=== PATIENT | male | born 1990 | race Caucasian/White ===

== ENCOUNTER 2016-10-25 02:17 | Emergency (ER) | payer OTHER ==
[~2016-10-25 02:17] MED LIST: ACETAMINOPHEN500 M2 PO; ADVIL200 M1 PO; ANTIVERT25 MG PO; ATIVAN1 MG PO; FLEXERIL10 MG; H PO; HYDROCODONE; IBUPROFEN800 MG PO; KEFLEX500 MG PO; LOPRESSOR50 MG PO; METOPROL; METOPROLOL TART25 MG PO; MS CONTIN30 M1 PO; NORCO 5/325 TAB1 TAB; NORCO 5/325 TAB1 TAB PO; PRILOSEC OTC20 MG PO; RYTHMOL150 MG; TOPROL XL50 MG PO; VICODIN 5/500 T1 TAB PO; VITAMIN C PO; XANAX0.5 M1 PO; ZESTRIL5 MG PO; [UNRECOGNIZED DRUG - OTHER] PO; prilosec PO
[2016-10-25] MEDS ORDERED: AUGMENTIN 875-1 EAC2 PO (04:37)
[2017-01-23] MEDS ORDERED: TOPROL XL25 M1 PO (17:04)
[2017-01-23] MEDS ORDERED: OMEPRAZOLE40 M2 PO (17:04)
[2017-01-23] MEDS ORDERED: MS CONTIN30 M1 PO (17:05)
== END 2016-10-25 04:45 ==
LOC: EDMED 02:17
DX: R51 Headache (principal); H66.92 Otitis media, unspecified, left ear; F17.210 Nicotine dependence, cigarettes, uncomplicated; I48.91 Unspecified atrial fibrillation; Z98.890 Other specified postprocedural states
CPT/HCPCS: J1200; J1885; J2405; J2765; J7030

== ENCOUNTER 2017-01-25 10:55 | Day surgery (SDC) | payer OTHER ==
[~2017-01-25] VITALS: Ht 180.3 cm; Wt 131.0 kg
[~2017-01-25 10:55] MED LIST changes: +AUGMENTIN 875-1 EAC2 PO; +OMEPRAZOLE40 M2 PO; +TOPROL XL25 M1 PO
== END 2017-01-25 17:30 ==
LOC: SRG 10:55 → SHSB 10:55 → SRG 11:30 → ORE 13:38 → PACU 15:07 → SHSB 16:05 → SRG 17:30
PROC: 099600Z Drainage of Left Middle Ear with Drainage Device, Open Approach (ICD-10-PCS; principal; 2017-01-25)
PROC: 099500Z Drainage of Right Middle Ear with Drainage Device, Open Approach (ICD-10-PCS; 2017-01-25)
DX: H65.23 Chronic serous otitis media, bilateral (principal); J34.2 Deviated nasal septum; H70.10 Chronic mastoiditis, unspecified ear; G89.29 Other chronic pain; H69.83 Other specified disorders of Eustachian tube, bilateral; K21.9 Gastro-esophageal reflux disease without esophagitis; E66.01 Morbid (severe) obesity due to excess calories; I48.0 Paroxysmal atrial fibrillation; H90.42 Sensorineural hearing loss, unilateral, left ear, with unrestricted hearing on the contralateral side; H90.11 Conductive hearing loss, unilateral, right ear, with unrestricted hearing on the contralateral side; Z88.8 Allergy status to other drugs, medicaments and biological substances; Z79.899 Other long term (current) drug therapy
CPT/HCPCS: C1726; J3010